=== PATIENT | female | born 1980 ===

== ENCOUNTER 2018-09-21 08:00 | Emergency (ER) | payer MEDICAID, OTHER ==
[2018-09-21 08:00] VITALS: BMI 38.9
[2018-09-21 08:19] VITALS: RESP 18
[2018-09-21] MEDS ORDERED: Sodium Chloride 0.9% 1,000 ML IV ONE (09:31)
[2018-09-21] MEDS ORDERED: Sodium Chloride 0.9% 1,000 ML ONE (09:47)
--- NOTE | 2018-09-21 09:57 | C.PDOC ---
History Of Present Illness 38 years old female, 16 weeks , G11,P6,Ab4 presents to ED for complaints of vomiting and diarrhea that began this morning at 4AM. Denies pain, fever, sick contacts, rash, cough, vaginal bleeding or discharge, abdominal pain, or back pain. Time Seen by Provider: 09/21/18 08:58 Chief Complaint (Nursing): GI Problem History Per: Patient History/Exam Limitations: no limitations Onset/Duration Of Symptoms: Hrs Current Symptoms Are (Timing): Still Present Associated Symptoms: Nausea, Vomiting, Diarrhea. denies: Fever, Chills Alleviating Factors: None Recent travel outside of the [place]: No Abnormal Vaginal Bleeding: No : 11 Para: 6 Miscarriage: 4 Past Medical History Reviewed: Historical Data, Nursing Documentation, Vital Signs Vital Signs: Last Vital Signs Temp 98.7 F 09/21/18 08:17 Pulse 83 09/21/18 08:17 Resp 18 09/21/18 08:17 BP 141/76 09/21/18 08:17 Pulse Ox 98 09/21/18 08:17 - Medical History PMH: Depression (DENIES) Surgical History: (2 c-sections ) Family History: States: No Known Family Hx - Social History Hx Tobacco Use: No Hx Alcohol Use: No Hx Substance Use: No - Immunization History Hx Tetanus Toxoid Vaccination: No Hx Influenza Vaccination: No Hx Pneumococcal Vaccination: No Review Of Systems Constitutional: Negative for: Fever, Chills Respiratory: Negative for: Cough Gastrointestinal: Positive for: Nausea, Vomiting, Diarrhea. Negative for: Abdominal Pain Musculoskeletal: Negative for: Back Pain Skin: Negative for: Rash Neurological: Negative for: Weakness, Numbness Physical Exam - Physical Exam Appears: Non-toxic, No Acute Distress Skin: Normal Color, Warm, Dry, No Rash Head: Atraumatic, Normacephalic Eye(s): bilateral: Normal Inspection, PERRL, EOMI Oral Mucosa: Moist Throat: No Erythema, No Exudate Neck: Normal ROM, Supple Chest: Symmetrical, No Tenderness Cardiovascular: Rhythm Regular, No Friction Rub, No Murmur Respiratory: Normal Breath Sounds, No Rales, No Rhonchi, No Wheezing Gastrointestinal/Abdominal: Normal Exam, Bowel Sounds (Active ), Soft, No Ten derness Back: Normal Inspection, No CVA Tenderness Extremity: Normal ROM, No Swelling Extremity: Bilateral: Atraumatic, Normal Color And Temperature, Normal ROM Pulses: Left Radial: Normal, Right Radial: Normal Neurological/Psych: Oriented x3, Normal Speech, Normal Motor Gait: Steady ED Course And Treatment - Laboratory Results Result Diagrams: 09/21/18 10:07 09/21/18 10:07 O2 Sat by Pulse Oximetry: 98 (RA) Pulse Ox Interpretation: Normal Medical Decision Making Medical Decision Making: Plan: * IV Fluids * Pepcid * Zofran * Blood work * Urinalysis On re-exam, the patient reports improvement of symptoms. Lungs are CTA, heart is RRR, abdomen is soft, non-tender and tolerating PO well. Ambulatory in the ED with steady gait. Follow up with the medical doctor within 1-2 days. Return if worsened. Disposition - Disposition Referrals: [facility] [Outside] [facility] [Outside] Disposition: HOME/ ROUTINE Disposition Time: 11:52 Condition: STABLE Additional Instructions: Follow up with the medical doctor within 1-2 days. Return if worsened. Prescriptions: Metoclopramide [Reglan] 1 tab PO TID PRN #25 tab PRN Reason: Nausea/Vomiting Instructions: Viral Syndrome (DC) Forms: [employer] (Jordanian) - POA Present On Arrival: None - Clinical Impression Clinical Impression: , Viral syndrome - PA / PRINCIPLE SOFTWARE ENGINEER / Resident Statement MD/DO has reviewed & agrees with the documentation as recorded. - Scribe Statement The provider has reviewed the documentation as recorded by the Lesteribluis Merrill All medical record entries made by the Scribe were at my direction and personally dictated by me. I have reviewed the chart and agree that the record accurately reflects my personal performance of the history, physical exam, medical decision making, and the department course for this patient. I have also personally directed, reviewed, and agree with the discharge instructions and disposition.
[2018-09-21 10:10] LABS: BASO # 0.1 K/uL (0.0-0.2); BASO % 0.6 % (0.0-2.0); EOS % 0.4 % (0.0-4.0); HEMOGLOBIN 12.6 g/dL (11.0-16.0); LYMPH % 10.2 % (20.0-40.0); MEAN CELL VOLUME 83.6 fL (81.0-99.0); MEAN CORPUSCULAR HGB CONC 34.7 g/dL (33.0-37.0); MEAN PLATELET VOLUME 9.1 fL (7.2-11.7); MONO # 0.4 K/uL (0.0-0.8); MONO % 4.3 % (0.0-10.0); NEUT # 8.5 K/uL (1.8-7.0); NEUT % 84.5 % (50.0-75.0); RBC 4.35 Mil/uL (3.80-5.20); RED CELL DISTRIBUTION WIDTH 13.5 % (11.5-14.5); WHITE BLOOD COUNT 10.1 K/uL (4.8-10.8)
[2018-09-21 10:23] LABS: ALB/GLOB RATIO 1.2 (1.0-2.1); ALBUMIN 3.8 g/dL (3.5-5.0); ALT/SGPT 23 U/L (9-52); AST/SGOT 20 U/L (14-36); BLOOD UREA NITROGEN 12 mg/dL (7-17); GFR NON-AFRICAN AMERICAN > 60; LIPASE 41 U/L (23-300)
[2018-09-21 11:25] LABS: HCG,QUALITATIVE URINE POSITIVE (NEGATIVE)
[2018-09-21 11:31] LABS: SQUAMOUS EPITHIAL 9 /hpf (0-5); URINE BACTERIA RARE (<OCC); URINE BILIRUBIN NEGATIVE (NEGATIVE); URINE BLOOD NEGATIVE (NEGATIVE); URINE CLARITY Clear (Clear); URINE COLOR Yellow (YELLOW); URINE GLUCOSE (UA) NORMAL (Normal); URINE LEUKOCYTE ESTERASE TRACE Leu/uL (Negative); URINE PROTEIN NEGATIVE (NEGATIVE); URINE UROBILINOGEN NORMAL mg/dL (0.2-1.0)
[2018-09-21 12:53] VITALS: BP 115/69; PULSE 76; TEMP 98.6
[2018-09-22 05:42] VITALS: O2SAT 98
== END 2018-09-21 12:52 | disposition home or self-care (01) ==
LOC: C.ER 08:00
DX: O26.892 Other specified pregnancy related conditions, second trimester (principal); B34.9 Viral infection, unspecified; Z3A.16 16 weeks gestation of pregnancy
CPT/HCPCS: 80053; 81001; 83690; 84703; 85025; 96361; 96374; 96375; 99285; J2405; J7030

== ENCOUNTER 2019-03-01 07:30 | Inpatient (IN) | payer OTHER ==
[2019-03-01 07:43] VITALS: BMI 44.1
[2019-03-01] MEDS ORDERED: Lactated Ringer's 1,000 ML IV ONE (07:44)
[2019-03-01] MEDS ORDERED: Lactated Ringer's 1,000 ML IV SCH (07:45)
[2019-03-01] MEDS ORDERED: Sodium Citrate/Citric Acid 15 ml Sol PO ONE (07:49)
[2019-03-01 08:48] LABS: BASO % 0.4 % (0.0-2.0); EOS # 0.1 K/uL (0.0-0.7); EOS % 0.9 % (0.0-4.0); LYMPH # 1.8 K/uL (1.0-4.3); MEAN CELL VOLUME 85.1 fL (81.0-99.0); MEAN CORPUSCULAR HEMOGLOBIN 28.8 pg (27.0-31.0); MEAN CORPUSCULAR HGB CONC 33.9 g/dL (33.0-37.0); MEAN PLATELET VOLUME 11.5 fL (7.2-11.7); MONO # 0.6 K/uL (0.0-0.8); MONO % 6.8 % (0.0-10.0); NEUT # 5.8 K/uL (1.8-7.0); NEUT % 69.9 % (50.0-75.0); RBC 4.17 Mil/uL (3.80-5.20); RED CELL DISTRIBUTION WIDTH 15.3 % (11.5-14.5); WHITE BLOOD COUNT 8.4 K/uL (4.8-10.8)
[2019-03-01 08:52] LABS: SQUAMOUS EPITHIAL 45 /hpf (0-5); URINE BACTERIA OCC (<OCC); URINE BILIRUBIN NEGATIVE (NEGATIVE); URINE BLOOD 1+ (NEGATIVE); URINE CLARITY Hazy (Clear); URINE COLOR Amber (YELLOW); URINE GLUCOSE (UA) NORMAL (Normal); URINE LEUKOCYTE ESTERASE 3+ Leu/uL (Negative); URINE PROTEIN NEGATIVE (NEGATIVE); URINE UROBILINOGEN NORMAL mg/dL (0.2-1.0)
[2019-03-01 08:58] LABS: URIC ACID 4.5 mg/dL (2.2-7.5)
[2019-03-01] MEDS ORDERED: Sodium Citrate/Citric Acid 15 ml Sol ONE (08:58)
[2019-03-01] MEDS ORDERED: Oxytocin 10 Units/ml Inj ONE (09:00)
[2019-03-01] MEDS ORDERED: Oxytocin 20 units in LR 2,000 ML IV ONE (09:00)
[2019-03-01 09:10] LABS: INR 0.9
[2019-03-01 09:31] LABS: ALB/GLOB RATIO 1.1 (1.0-2.1); ALBUMIN 3.4 g/dL (3.5-5.0); ALT/SGPT 11 U/L (9-52); AST/SGOT 25 U/L (14-36); BLOOD UREA NITROGEN 10 mg/dL (7-17); CALCIUM 8.9 mg/dl (8.6-10.4); GFR NON-AFRICAN AMERICAN > 60
[2019-03-01] MEDS ORDERED: Oxycodone/Acetaminophen 5/325 mg Tab PO PRN ×2 (10:00)
[2019-03-01] MEDS ORDERED: Morphine 1 mg/ml preservative-free Inj(Duramorph) ONE (11:14)
[2019-03-01] MEDS ORDERED: Dexamethasone 4 mg/1 ml IVP PRN (11:39)
[2019-03-01] MEDS: Simethicone 80 mg Chewtab PO SCH ×3 (14:45→23:06)
[2019-03-01] MEDS ORDERED: DiphenhydrAMINE 50 mg/ml Inj IVP PRN (22:29)
[2019-03-01] MEDS ORDERED: DiphenhydrAMINE 50 mg/ml Inj ONE (22:58)
--- NOTE | 2019-03-02 06:59 | OBADHP ---
Datetime: 03/01/2019 08:11 Admit Comment, IP Provider: Patient is a 38 year old at 39 weeks 0 days JEAN 03/08/19 by US w marina presents to the unit for scheduled C/S. Patient is doing well, offers no complaints at this time. She endorses +FM, denies CTX, VB, LOF. Denies headaches, dizziness, blurry vision, RUQ/epigastric celine n, shortness of breath. Issues: Posterior Marginal Previa - on 02/18 US, placenta is posterior Advanced Maternal Age Multigravida OB Hx: 1. 1999 at 36 weeks, Male infant, 6lbs 2oz, no complications 2. SAB 3. SAB 4. SAB 5. SAB 6. 2009 at 37 weeks, Male infant, 7lbs 5oz, no complications 7. 2009 at 39 weeks, Female , 8lbs 9oz, no complications 8. 2010 PLTCD at 39 weeks for breech presentation, female infant, 6lbs, no complications 9. 2011 at 39 weeks, female infant, 7lbs, no complications 10. 2014 RLTCD at 39 weeks for low LU, male infant, 6lbs, no complications 11. Current ANODIZER Hx: LMP - 06/04/18 [facility] - 14 x regular x 3 days Denies history of fibroids, ovarian cysts, abnormal pap smears History of chlamydia in 2015 - treated Allergies: NKDA Medications: PNV Medical History: Denies Surgical History: C/S x 2, D+C Social History: Denies alcohol, tobacco, drug use; single, FOB not involved Family History: Mother - age 63, thyroid abnormality, Father - from [place] PE: See above A/P: Patient is a 38 year old at 39w0d for Repeat C/S -Admit to unit -Admission labs: CBC, CMP, T+S, UA, Type and cross -Elevated BP readings - [facility] labs ordered -Lactated Ringers -Ancef 3gm, bictra, pepcid preoperatively -Diet: NPO -Anesthesia notified, surgical assistant certified notified -Plan discussed with Dr Ena Lovell DO PGY-2 FHR - Baseline A Provider: 140 Contraction Comments Provider: irreg Comments, ACOG Physical Exam: Gen: NAD CV: RRR Lungs: CTA B/L Abdomen: Soft, gravid, Fundal height 42cm Extremities: +1 pitting edema b/l, +pedal pulses IP Hx Assessment: The History has been Reviewed and is Current Vital Signs Provider: Reviewed IP Chief Complaint: Scheduled Section NICHD Variability Prov Fetus A: Moderate 6-25bpm FHR Category Provider Fetus A: Category I NICHD Decel Fetus A IP Provider: None Dilatation, Provider: deferred EGA AdmitDate IP: 39.0 IP Adm Impression: Term, intrauterine IP Admit Plan: Admit to unit; Initiate Section protocol
--- NOTE | 2019-03-02 07:03 | OBDS ---
DELIVERY PERSONNEL Delivery Doctor: Patrice Sutherland MD Scrub Nurse: Mohit Rodriguez RN Traffic Court Referee: Emily Marley RN Anesthesiologist: Dr Gatica MATERNAL INFORMATION Delivery Anesthesia: Spinal Medications in Delivery: 40 units of pitocin in 1000 Placenta Cultured: No Maternal Complications: None RN Comments: repeast c/s liveborn male , 9/9 Provider Comments: Repeat LFT C/S. Pt delivered viable infant male with Apgars 9/9. Normal uterus, normal tubes and ovaries bilaterally. EBL 800cc IVF 2000cc LR UO 200cc clear No complications Refer to dictation LABOR SUMMARY EDC: 03/08/2019 00:00 No. Babies in Womb: 1 LABOR INFORMATION Group B Beta Strep: Done, Result Unknown MEMBRANES Membranes Rupture Method: Artificial Rupture of Membranes: 03/01/2019 10:29 Length of Rupture (hrs): 0.02 Amniotic Fluid Color: Clear-exiting meconium Amniotic Fluid Amount: Moderate Amniotic Fluid Odor: None STAGES OF LABOR Stage 3 hrs: 0 Stage 3 min: 1 CSECTION DELIVERY Secondary Indication: Repeat Elective CSection Urgency: Elective CSection Incidence: Repeat Labor: No Labor Elective: Elective CSection Incision: Lower Uterine Transverse BABY A INFORMATION Infant Delivery Date/Time: 03/01/2019 10:30 Method of Delivery: Born in Route : No : N/A Forceps: N/A Vacuum Extraction: N/A Shoulder Dystocia : No SHOULDER DYSTOCIA BABY A Infant Delivery Date/Time: 03/01/2019 10:30 PRESENTATION/POSITION BABY A Presentation: Cephalic Cephalic Presentation: Vertex Vertex Position: Left Occipital Anterior Breech Presentation: N/A PLACENTA INFORMATION BABY A Placenta Delivery Time : 03/01/2019 10:31 Placenta Method of Delivery: Manual Removal Placenta Status: Delivered SCORES BABY A Heart Rate 1 min: >100 bpm Resp Effort 1 min: Good Cry Reflex Irritability 1 min: Cough or Sneeze or Pulls Away Muscle Tone 1 min: Active Motion Color 1 min: Body [place], Extremities Blue Resuscitation Effort 1 min: Tactile Stimulation SCORE 1 MIN: 9 Heart Rate 5 min: >100 bpm Resp Effort 5 min: Good Cry Reflex Irritability 5 min: Cough or Sneeze or Pulls Away Muscle Tone 5 min: Active Motion Color 5 min: Body [place], Extremities Blue Resuscitation Effort 5 min: N/A SCORE 5 MIN: 9 INFORMATION BABY A Gestational Age at Delivery: 39.0 Gestational Status: Term Infant Outcome : Liveborn Infant Condition : Stable Sex: Male IDENTIFICATION/MEDS BABY A ID Band Number: [id number] ID Band Location: Left Leg; Left Arm Sensor Applied: Yes Sensor Number: [id number] Sensor Location : Cord Clamp Vitamin K Given : Not Given Erythromycin Given: Not Given WEIGHT/LENGTH BABY A Birthweight (gms): 3925 Weight (lb): 8 Infant Weight (oz): 10 Length Inches: 19.50 Length cms: 49.5 CORD INFORMATION BABY A No. Cord Vessels: 3 Nuchal Cord : N/A Cord Blood Taken: N/A Infant Suction: Mouth; Nose ASSESSMENT BABY A Infant Complications: None Physical Findings at Delivery: [place] Spots Respirations: Appears Normal Architectural Engineering Teacher/ALS Called : No Infant Care By: Chino Mckinney RN, Dr Crane Transferred To: Remains with Mother
--- NOTE | 2019-03-02 07:07 | OBDS ---
DELIVERY PERSONNEL Delivery Doctor: Patrice Sutherland MD Scrub Nurse: Mohit Rodriguez RN Body Corporate Manager: Emily Marley RN Anesthesiologist: Dr Gatica MATERNAL INFORMATION Delivery Anesthesia: Spinal Medications in Delivery: 40 units of pitocin in 1000 Placenta Cultured: No Maternal Complications: None RN Comments: repeast c/s liveborn male , 9/9 Provider Comments: Repeat LFT C/S. Pt delivered viable infant male with Apgars 9/9. Normal uterus, normal tubes and ovaries bilaterally. EBL 800cc IVF 2000cc LR UO 200cc clear No complications Refer to dictation LABOR SUMMARY EDC: 03/08/2019 00:00 No. Babies in Womb: 1 LABOR INFORMATION Group B Beta Strep: Done, Result Unknown MEMBRANES Membranes Rupture Method: Artificial Rupture of Membranes: 03/01/2019 10:29 Length of Rupture (hrs): 0.02 Amniotic Fluid Color: Clear-exiting meconium Amniotic Fluid Amount: Moderate Amniotic Fluid Odor: None STAGES OF LABOR Stage 3 hrs: 0 Stage 3 min: 1 CSECTION DELIVERY Secondary Indication: Repeat Elective CSection Urgency: Elective CSection Incidence: Repeat Labor: No Labor Elective: Elective CSection Incision: Lower Uterine Transverse BABY A INFORMATION Infant Delivery Date/Time: 03/01/2019 10:30 Method of Delivery: Born in Route : No : N/A Forceps: N/A Vacuum Extraction: N/A Shoulder Dystocia : No SHOULDER DYSTOCIA BABY A Infant Delivery Date/Time: 03/01/2019 10:30 PRESENTATION/POSITION BABY A Presentation: Cephalic Cephalic Presentation: Vertex Vertex Position: Left Occipital Anterior Breech Presentation: N/A PLACENTA INFORMATION BABY A Placenta Delivery Time : 03/01/2019 10:31 Placenta Method of Delivery: Manual Removal Placenta Status: Delivered SCORES BABY A Heart Rate 1 min: >100 bpm Resp Effort 1 min: Good Cry Reflex Irritability 1 min: Cough or Sneeze or Pulls Away Muscle Tone 1 min: Active Motion Color 1 min: Body [place], Extremities Blue Resuscitation Effort 1 min: Tactile Stimulation SCORE 1 MIN: 9 Heart Rate 5 min: >100 bpm Resp Effort 5 min: Good Cry Reflex Irritability 5 min: Cough or Sneeze or Pulls Away Muscle Tone 5 min: Active Motion Color 5 min: Body [place], Extremities Blue Resuscitation Effort 5 min: N/A SCORE 5 MIN: 9 INFORMATION BABY A Gestational Age at Delivery: 39.0 Gestational Status: Term Infant Outcome : Liveborn Infant Condition : Stable Sex: Male IDENTIFICATION/MEDS BABY A ID Band Number: [id number] ID Band Location: Left Leg; Left Arm Sensor Applied: Yes Sensor Number: [id number] Sensor Location : Cord Clamp Vitamin K Given : Not Given Erythromycin Given: Not Given WEIGHT/LENGTH BABY A Birthweight (gms): 3925 Weight (lb): 8 Infant Weight (oz): 10 Length Inches: 19.50 Length cms: 49.5 CORD INFORMATION BABY A No. Cord Vessels: 3 Nuchal Cord : N/A Cord Blood Taken: N/A Infant Suction: Mouth; Nose ASSESSMENT BABY A Infant Complications: None Physical Findings at Delivery: [place] Spots Respirations: Appears Normal Lamp Shade Joiner/ALS Called : No Infant Care By: Chino Mckinney RN, Dr Crane Transferred To: Remains with Mother
[2019-03-02 07:55] LABS: HEMOGLOBIN 10.3 g/dL (11.0-16.0); MEAN CELL VOLUME 85.5 fL (81.0-99.0); MEAN CORPUSCULAR HEMOGLOBIN 29.4 pg (27.0-31.0); MEAN CORPUSCULAR HGB CONC 34.4 g/dL (33.0-37.0); MEAN PLATELET VOLUME 11.4 fL (7.2-11.7); RBC 3.48 Mil/uL (3.80-5.20); WHITE BLOOD COUNT 9.4 K/uL (4.8-10.8)
[2019-03-02] MEDS ORDERED: Bisacodyl 5mg EC Tab PO ONE (10:00)
[2019-03-02] MEDS: Simethicone 80 mg Chewtab PO SCH ×5 (10:17→21:19)
[2019-03-02] MEDS: Prenatal Multivit/Folic Acid/Iron Tab PO SCH (10:30)
--- NOTE | 2019-03-02 18:33 | OP ---
PROCEDURE DATE: 03/01/2019 PREOPERATIVE DIAGNOSIS: Elective repeat section at 39 weeks' gestational age. POSTOPERATIVE DIAGNOSIS: Elective repeat section at 39 weeks' gestational age. OPERATION PERFORMED: Repeat low flap transverse section via Pfannenstiel incision. OPERATIVE FINDINGS: Viable infant male with Apgars of 9 and 9 at one and five minutes respectively. Normal uterus, normal tubes and ovaries bilaterally. ESTIMATED BLOOD LOSS: 800 mL. FLUIDS: 2000 mL lactated Ringers. URINE OUTPUT: 200 mL of clear urine at the end of the procedure. COMPLICATIONS: No complications. SURGEON: Jerry Sutherland MD FOLDER MACHINE: Dr. Gee. Dr. Gee was present from the beginning of the procedure to the end of the procedure. Dr. Gee was integral in exposing the surgical field, controlling intraoperative bleeding, removal of adhesions, and manual delivery of the infant. ANESTHESIOLOGIST: Dr. Gatica. ANESTHESIA: Spinal. COMPLICATIONS: None. DESCRIPTION OF PROCEDURE: The patient was taken to the operating room where spinal anesthesia was found to be adequate. The patient was prepped and draped in the normal sterile fashion in dorsal supine position with the leftward tilt. A Pfannenstiel skin incision was made with scalpel that was secured down through the underlying layer of fascia with the scalpel. A midline defect was made in the fascial layer with the scalpel. The fascial incision was then extended bilaterally with curved Kumari scissors. The fascial layer was from the underlying rectus muscles both bluntly and sharply with curved Kumari scissors. The rectus muscles were in the midline. The peritoneum was then identified, tented up with Kami clamps x2, entered sharply with Metzenbaum scissors. This peritoneal incision was then extended superiorly and inferiorly with good visualization of the urinary bladder. The bladder blade was inserted into the abdomen. The vesicouterine peritoneum was then identified, tented up with Kami clamps x2, entered sharply with Metzenbaum scissors. This peritoneal incision was then extended bilaterally with Metzenbaum scissors. The bladder flap was created digitally. The [place] retractor was placed over the urinary bladder. The uterus was incised with the scalpel. The uterine incision was extended bilaterally and bluntly. The infant's head was delivered atraumatically. Nose and mouth were suctioned with bulb suction. The remainder of the infant was delivered without complication. The cord was clamped and cut. The was handed off to the awaiting leather leveler. The placenta was removed manually. The uterus was cleared off all clots and debris. The uterine incision was repaired with 0 Vicryl in a running, locked fashion. Second layer of the same suture was used to imbricate the first excellent hemostasis. Re-inspection of the uterine incision proved excellent hemostasis. The abdomen was irrigated with copious amounts of warm normal saline, re-inspection of the uterine incision proved excellent hemostasis. All instruments were removed from the patient. The peritoneal layer was closed with running stitch of 2-0 chromic. The rectus muscle were re-approximated in the midline with the running stitch of 2-0 chromic. The fascial layer was closed with running stitch of 0 Vicryl. Subcutaneous tissue was closed with running stitch of 3-0 plain. The skin was closed with subcutaneous stitch of 3-0 Vicryl. The patient tolerated the procedure well. Sponge, lap, and needle counts were correct x2. The patient was given 3 g of Ancef just prior to the beginning of the procedure. There were no complications. The patient was taken to the recovery room in awake and stable condition. Jerry Sutherland MD
--- NOTE | 2019-03-02 19:01 | OBPPN ---
Datetime: 03/02/2019 13:10 PP Pain Prov: Within normal limits PP Nausea Prov: Denies PP Flatus Prov: Yes PP BM Prov: No PP Breasts Prov: Not Done PP Heart Prov: Normal PP Lungs Prov: Normal PP Abdomen/Uterus Prov: Normal PP Lochia Prov: Normal PP Vulva/Perineum Prov: Normal PP CVA Tenderness Prov: Normal PP Extremities Prov: Normal PP C/S Incision Prov: Normal PP Progress Prov: Normal PP Impression Prov: Normal progression PP Plan Prov: Continue present management PP Progress Note Prov: Patient was seen and examined sitting on chair. She reported 2/10 pain at inc ision site but c/o of pelvic pain and severe cramping. Andrews was removed recenlty, has not urinated y et. Lochia is mild. Reports passing flatus, has not had a bowel movement yet. She is breastfeeing nico ry 2 hours for 10-20 mins. Reported drinking one cup of water. Patient has been reluctent to take PO medications in pill form and crushed up with apple sauce. Offers no other complaints at this time. VS: BP 130/88 HR 96 Temp 98.6 Gen: AAOx3 Abd: Incision c/d/i Ext: No clubbing, cyanosis, edema A/P Patient is a 38 year old s/p RLTCD POD#1 Stable, afebrile Monitor H/H, follow up CBC Pain management, toradol IM Encourage ambulation, hydration and breast feeding Encourage incentive spirometry Advance postop care Plan discussed with Dr Matson IP PP Procedures: None Vital Signs Provider PP: Reviewed; Within Normal Limits
[2019-03-03] MEDS: Simethicone 80 mg Chewtab PO SCH ×3 (09:31→21:39)
[2019-03-03] MEDS: Prenatal Multivit/Folic Acid/Iron Tab PO SCH (09:32)
--- NOTE | 2019-03-04 10:33 | OBPPN ---
Datetime: 03/03/2019 12:33 PP Pain Prov: Within normal limits PP Nausea Prov: Denies PP Flatus Prov: Yes PP BM Prov: No PP Breasts Prov: Not Done PP Heart Prov: Normal PP Lungs Prov: Normal PP Abdomen/Uterus Prov: Normal PP Lochia Prov: Normal PP Vulva/Perineum Prov: Normal PP CVA Tenderness Prov: Normal PP Extremities Prov: Normal PP C/S Incision Prov: Normal PP Progress Prov: Not Applicable PP Comments Phys Exam Prov: Fundus firm and non-tender Incision clean, dry and intact PP Impression Prov: Normal progression PP Plan Prov: Continue present management PP Progress Note Prov: Pt seen and examined at bedside. Pt had a fever of 100.2 last night and decli jonah Tylenol po or rectal. Today she denies having any pain. She reports flatus, urination, and states that she had a small BM this morning. She is attempting breast feeding but, states "that she has no milk". Pt is currently bottle feeding. She is eating well and drinking 2 pitchers of water per day. S tates that she has been ambulating around the room. Refuses to ambulate on hallways despite encourage d to do so. Vitals: T:97.5, HR 89,BP:132/78,RR:18 PE Gen: NAD, Well appearing Cardiac: NML S1,S2 , No murmmers Lungs: CTL, No Wheezes,rales, rhonchi ABD: Soft, non tender. Per nursing communication fundal height at the level of the umbillicus Incision: Clean, Minimal drainage at incision site, well approximated LE: 1+ edema bilaterally A/P 38 y/o Status post LTCS. post-op day 2 Continue current medication management as perscribed although refuses all pain medications Denies any pain Encourage ambulation, breast feeding, hydration. Stable Plan discussed with Dr. Dano Urias, OMS-III Pt seen and examined with Med Student Bridgett and all of her findings and POC were discussed and a greed with. IP PP Procedures: None Vital Signs Provider PP: Reviewed
[2019-03-04 10:42] VITALS: BP 136/84; RESP 18; TEMP 98.1
[2019-03-04] MEDS: Simethicone 80 mg Chewtab PO SCH (11:28)
[2019-03-04] MEDS: Prenatal Multivit/Folic Acid/Iron Tab PO SCH (11:28)
--- NOTE | 2019-03-04 15:16 | OBPPN ---
Datetime: 03/04/2019 10:52 PP Pain Prov: Within normal limits PP Nausea Prov: Denies PP Flatus Prov: Yes PP BM Prov: Yes PP Breasts Prov: Normal PP Heart Prov: Normal PP Lungs Prov: Normal PP Abdomen/Uterus Prov: Normal PP Lochia Prov: Normal PP Vulva/Perineum Prov: Normal PP CVA Tenderness Prov: Normal PP Extremities Prov: Normal PP C/S Incision Prov: Normal PP Progress Prov: Normal PP Comments Phys Exam Prov: incision clean, intact, no elizabeth PP Impression Prov: Normal progression PP Plan Prov: Continue present management PP Progress Note Prov: Patient seen and examined at bedside. Patient reports feeling well with minim al to no pain, requiring no pain medication. Patient denies vaginal bleeding. Patient reports flatule nce and bowel movement, denies fevers, chills, chest pain headaches, vision changes, SOB, abdominal p ain, constipation, diarrhea. Vitals: 98.0 F, HR 95 BP 136/89 HNEET: PEERL Cardio: S1S2 RR Resp: CTA B/L Abd: No tenderness on palpation, incision site clean, dry, intact, steri strips intact, minor sero sanguous drainage around site Extremities: Pedal edema 1+ B/L, no calf tenderness, no erythema Skin: no rashes noted 38 F, pp day #3 via CS - stable for discharge - continue IV hydration - continue to ambulate - contune to routine post operative care Vital Signs Provider PP: Reviewed; Within Normal Limits
[2019-03-04 22:10] VITALS: PULSE 85; O2SAT 99
== END 2019-03-04 13:30 | disposition home or self-care (01) | DRG 651 ==
LOC: C.4D 07:30 → C.4M 14:25
PROVIDERS: ADMIT Obstetrics & Gynecology; ATTEND Obstetrics & Gynecology
PROC: 10D00Z1 Extraction of Products of Conception, Low, Open Approach (ICD-10-PCS; principal; 2019-03-01)
DX: O13.4 Gestational [pregnancy-induced] hypertension without significant proteinuria, complicating childbirth (principal); O77.0 Labor and delivery complicated by meconium in amniotic fluid; O34.211 Maternal care for low transverse scar from previous cesarean delivery; Z3A.39 39 weeks gestation of pregnancy; Z37.0 Single live birth